=== PATIENT | male | born 1965 | race Caucasian/White ===

== ENCOUNTER 2024-11-13 13:57 | Emergency (ER) | payer MEDICARE, OTHER, SELFPAY ==
[2024-11-13 14:21] VITALS: BP 142/91; PULSE 70; RESP 16; TEMP 36.9; O2SAT 98
--- NOTE | 2024-11-13 14:45 | ED.GENADULT ---
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 No longer on any medications or anticoagulants). He presents to the ER today with his girlfriend for evaluation of right-sided flank pain and right sided back pain. He actually injured his back about a week ago. He was riding a horse. He was leaning to the right to reach something that was hanging down when the strap on his saddle was loose. The saddle began to rotate to the right and then the horse turned to the left causing the patient to fall directly off the horse onto the ground. He had had a right shoulder surgery a few months ago so was not able to reach out his right arm to stop his fall. He landed directly on his right flank/posterior ribcage. He had the wind knocked out of him but was able to get up. He has been managing his pain at home for the past week with oral boam-wpx-olzdyhl medications. He has a lot of pain when he breathes in deeply and pain when he moves wrong but overall has been feeling fine. No dizziness or weakness. No anterior abdominal pain. No hematuria. No pain in his hip or pelvis. No numbness or weakness down his leg. He did not hit his head in the fall and has not had a headache. No neck pain. This morning he sneezed and with that had an abrupt increase in pain that is now severe in the right lower rib cage/flank. Hurts every time he tries to move or breathe deeply. He is not really short of breath but it hurts to take a deep inspiration. No cough. No fever. PFSH PFSH Social History Smoking Status: Never smoker How often do you have a drink containing alcohol: monthly or less AUDIT-C Alcohol total score: 1 Exam Narrative: Exam Narrative: Constitutional: Appears well-developed and well-nourished. Alert. Conversant. Non toxic. HENT: Head: Atraumatic. Nose: Nose normal. Mouth/Throat: Oral mucosa is clear and moist. no trismus. Pharynx normal. Tonsils symmetric. No tonsillar enlargement, erythema, or exudate. Eyes: Conjunctivae normal. EOM normal. Pupils equal, round, and reactive to light. No scleral icterus. Neck: Normal range of motion. Neck supple. No tracheal deviation present. Cardiovascular: Normal rate, regular rhythm. No gallop. No friction rub. No murmur heard. Symmetric radial artery pulses Pulmonary/Chest: Effort normal. No stridor. No respiratory distress. No wheezes. No rales. No rhonchi . Marked right posterior lower rib tenderness. And CVA tenderness. No bruising. No rash. No crepitus. Abdominal: Soft. No distension. No mass. No tenderness. No rebound. No guarding. Musculoskeletal: RUE: Normal range of motion. No tenderness. No deformity LUE: Normal range of motion. No tenderness. No deformity RLE: Normal range of motion. No edema. No tenderness. No deformity LLE: Normal range of motion. No edema. No tenderness. No deformity No midline C, T, L-spine tenderness Pelvis stable. Neurological: Alert and oriented to person, place, and time. Normal strength. CN II-VII intact. No sensory deficit. GCS eye subscore is 4. GCS verbal subscore is 5. GCS motor subscore is 6. Normal coordination Skin: Skin is warm and dry. No rash noted. No pallor. Normal capillary refill. Psychiatric: Normal mood. Normal affect. Const: Vital Signs, click to edit/add: Vital Signs - 24 hr 11/13/24 14:21 11/13/24 16:48 Temperature 98.4 F 99.1 F Pulse Rate [Pulse Oximeter] 70 62 Respiratory Rate 16 18 Blood Pressure [[facility] Upper Arm] 142/91 H 138/102 H Pulse Oximetry 98 93 Oxygen Delivery Me thod Room Air Room Air Course Vital Signs Vital signs: Initial Vital Signs Temperature 98.4 F 11/13/24 14:21 Temperature Source Temporal Artery Scan 11/13/24 14:21 Pulse Rate 70 11/13/24 14:21 Respiratory Rate 16 11/13/24 14:21 Blood Pressure 142/91 H 11/13/24 14:21 Blood Pressure Mean 108 H 11/13/24 14:21 Pulse Oximetry 98 11/13/24 14:21 Oxygen Delivery Method Room Air 11/13/24 14:21 Vital Signs Temperature 98.4 F 11/13/24 14:21 Pulse Rate 70 11/13/24 14:21 Respiratory Rate 16 11/13/24 14:21 Blood Pressure 142/91 H 11/13/24 14:21 Pulse Oximetry 98 11/13/24 14:21 Oxygen Delivery Method Room Air 11/13/24 14:21 Temperature 99.1 F 11/13/24 16:48 Pulse Rate 62 11/13/24 16:48 Respiratory Rate 18 11/13/24 16:48 Blood Pressure 138/102 H 11/13/24 16:48 Pulse Oximetry 93 11/13/24 16:48 Oxygen Delivery Method Room Air 11/13/24 16:48 Medications Administered Medications: Discontinued Medications Generic Name Dose Route Start Last Admin Trade Name Freq PRN Reason Stop Dose Admin Hydromorphone HCl 0.5 mg 11/13/24 14:59 11/13/24 15:31 Hydromorphone 0.5 Mg/0.5 Ml Inj IVP 0.5 mg Q1H PRN Administration Pain Ketorolac Tromethamine 15 mg 11/13/24 14:59 11/13/24 15:32 Ketorolac 15 Mg/Ml Inj IVP 11/13/24 15:00 15 mg ONCE ONE Administration Ondansetron HCl 4 mg 11/13/24 14:59 11/13/24 15:32 Ondansetron 2 Mg/Ml Inj IVP 11/13/24 15:00 4 mg ONCE ONE Administration Medical Decision Making [facility] Narrative Medical decision making narrative: Pleasant 59-year-old gentleman presenting with a one-week history of right flank/lower rib pain after suffering an injury when he fell off his horse. Pain dramatically worsened today when he sneezed. He is hemodynamically stable. Differential here is broad. Consider musculoskeletal pain. With the amount of pain and marked tenderness that he has has him concerned about possible rib fracture. Defer 0 show also include renal injury, hepatic injury, musculoskeletal injury. After discussing options for workup with the patient his girlfriend (x-ray versus CT) we opted to do with CT scan. CT scan of his chest 7 pelvis showed evidence for a right posterior nondisplaced 11th rib fracture. No other acute injury. He did not hit his head or neck. He received IV Dilaudid for his pain here in the ER and was somewhat more comfortable. Pain was tolerable and he was felt safe for discharge home. Instymeds prescriptions for Percocet-12 tablets. Opiate precautions including sedation, constipation, dizziness, driving, and addiction reviewed. Also Zofran for opiate induced nausea Precautions for return to the ER reviewed. Lab Data Labs: Lab Results 11/13/24 11/13/24 Range/Units 14:59 15:30 WBC 8.70 (4.50-11.00) K/uL RBC 5.14 (4.30-5.90) m/uL Hgb 15.6 (13.5-17.5) gm/dL Hct 47.2 (37.0-53.0) % MCV 92 (80-100) fL MCH 30 (26-34) pg MCHC 33 (32-36) gm/dL RDW Coeff of Anuel 13.2 (11.5-15.5) % Plt Count 270 (140-440) K/uL Neut % (Auto) 72.5 H (42.0-72.0) % Lymph % (Auto) 17.2 L (20-44) % [place] % (Auto) 7.1 (0.0-11.0) % Eos % (Auto) 2.4 (0.0-7.0) % Baso % (Auto) 0.7 (0.0-3.0) % Neut # (Auto) 6.30 (1.7-7.0) K/uL Lymph # (Auto) 1.50 (0.90-2.90) K/uL [place] # (Auto) 0.60 (0.00-0.90) K/UL Eos # (Auto) 0.21 (0.00-0.50) K/uL Baso # (Auto) 0.06 (0.00-0.30) K/uL Abs Immat Gran (auto) 0.01 (0.00-0.30) K/uL Imm/Tot Granulo (auto) 0.1 % Sodium 137 (135-149) mmol/L Potassium 4.4 (3.6-5.1) mmol/L Chloride 100 (96-114) mmol/L Carbon Dioxide 27 (20-32) mmol/L Anion Gap 10 (7-15) mEq/L BUN 18 (7-30) mg/dL Creatinine 0.9 (0.5-1.5) mg/dL Estimated GFR 98 ml/min Glucose 96 (60-115) mg/dL Calcium 9.3 (8.4-10.6) mg/dL Total Bilirubin 0.6 (0.1-1.5) mg/dL AST 20 (12-35) U/L ALT 21 (4-50) U/L Alkaline Phosphatase 81 (40-150) U/L Total Protein 7.7 (6.0-8.3) g/dL Albumin 4.7 (3.3-5.0) g/dL Imaging Data CT Chest/Ab/Pelvis: Attestation: I have reviewed the pertinent imaging results. My impression: By my read I do think there is a nondisplaced fracture of the posterior right 11th rib. No associated hemothorax or pneumothorax. I called [facility], Radiology, to ask for an over read. This will be forthcoming. Radiologist's impression: IMPRESSION: No traumatic injury identified in the chest, abdomen or pelvis. Discharge Plan Discharge Clinical Impression: Fracture of rib Patient Disposition: Home, Self-Care Condition: Stable Instructions: Rib Fracture (ED) Additional Instructions: As we discussed, your CT scan shows evidence for a rib fracture on your right 11th rib. This fracture will heal with time. Due to best control the pain. Start with over the counter pain medications or ice packs or warm packs. Use the prescription pain killer (Percocet) if needed. Be careful with Percocet because it causes dizziness, drowsiness, constipation and can be addictive. Do not drive for 6 hours after taking Percocet. Be sure to take deep breaths 3-4 times per day to fully inflate your long and help prevent pneumonia If you have any worsening symptoms such as worsening pain, trouble breathing, high fever, cough, dizziness or weakness, please return to emergency room right away Follow Up/Referrals: Thuan Garza MD [Primary Care Provider] - Stand Alone Forms: MyHealth Info Instructions
[2024-11-13] MEDS: HYDROmorphone 0.5 mg/0.5 ml inj IVP (15:31)
[2024-11-13] MEDS: ONDANSETRON 2 MG/ML inj 4 MG IVP (15:32)
[2024-11-13] MEDS: KETOROLAC 15 MG/ML inj IVP (15:32)
[2024-11-13 15:35] LABS: Basophils Absolute Auto 0.06 K/uL (0.00-0.30); Basophils Percent Auto 0.7 % (0.0-3.0); Eosinophils Absolute Auto 0.21 K/uL (0.00-0.50); Eosinophils Percent Auto 2.4 % (0.0-7.0); Hematocrit 47.2 % (37.0-53.0); Hemoglobin* 15.6 gm/dL (13.5-17.5); Immature Granulocytes Abs Auto 0.01 K/uL (0.00-0.30); Immature Granulocytes Pct Auto 0.1 %; Lymphocytes Percent Auto 17.2 % (20-44); Mean Corpuscular HGB Conc 33 gm/dL (32-36); Mean Corpuscular Hemoglobin 30 pg (26-34); Mean Corpuscular Volume 92 fL (80-100); Monocytes Percent Auto 7.1 % (0.0-11.0); Neutrophils Percent Auto 72.5 % (42.0-72.0); Platelet Count* 270 K/uL (140-440); RDW Coefficient of Variation % 13.2 % (11.5-15.5); Red Blood Count 5.14 m/uL (4.30-5.90)
[2024-11-13 15:39] LABS: Slide Review Reflex No
[2024-11-13 15:47] LABS: Albumin* 4.7 g/dL (3.3-5.0); Chloride* 100 mmol/L (96-114); Potassium* 4.4 mmol/L (3.6-5.1); Sodium* 137 mmol/L (135-149)
[2024-11-13 15:49] LABS: Blood Urea Nitrogen* 18 mg/dL (7-30); Creatinine* 0.9 mg/dL (0.5-1.5); Estimated Glomerular Filt Rate 98 ml/min
[2024-11-13 15:50] LABS: Alanine Aminotransferase* 21 U/L (4-50); Alkaline Phosphatase* 81 U/L (40-150); Anion Gap 10 mEq/L (7-15); Aspartate Amino Transferase* 20 U/L (12-35); Bilirubin Total* 0.6 mg/dL (0.1-1.5); Carbon Dioxide* 27 mmol/L (20-32); Glucose* 96 mg/dL (60-115); Total Protein* 7.7 g/dL (6.0-8.3)
[2024-11-13 15:51] LABS: Calcium* 9.3 mg/dL (8.4-10.6)
--- OUTSIDE RECORDS SUMMARY | 2024-11-13 16:10 | XMS_ITS | Clinical Summary ---
Author Organization [employer] [facility] [employer] [facility] Address [address] [place] [address] Care Team Providers Care Subsurface Augmentee Elint Operator Name Role Phone Pcp, No Primary Care Provider Unavailabl e Allergies Active Allergy Reactions Criticality Noted Date Comments Chondroitin Sulfate A Sodium *Unknown 010 Hyaluronate Sodium *Unknown 07/13/2010 Medications rivaroxaban (Xarelto) 20 mg tablet 2 Active atorvastatin (LIPITOR) 40 mg tablet 40 mg. 2 Active zaleplon (SONATA) 10 mg capsule Take 1 Capsule by mouth at bedtime if needed. 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 EXAMINER Gender Identity Not on file Sexual Orientation Not on file Obstetrics History Last Filed Vital Signs Vital Sign Reading Time Taken Comments Blood Pressure 129/81 10/04/2022 1:57 PM YARN EXAMINER Pulse 60 10/04/2022 1:57 PM YARN EXAMINER Temperature 37 C (98.6 F) 10/04/2022 1:57 PM YARN EXAMINER Respiratory Rate 18 10/04/2022 1:57 PM YARN EXAMINER Oxygen Saturation 97% 10/04/2022 1:57 PM YARN EXAMINER Inhaled Oxygen Concentration - - Weight - - Height - - Body Mass Index - - Plan of Treatment Health Maintenance Due Date Last Done Comments Tdap 1976 Depression screening for age 12+ 1977 HIV for age 15-65 1980 BMI (ht and wt on same day) for age 18+ 1983 Hepatitis C screening for age 18-79 1983 Tetanus booster 1985 Colonoscopy through age 75 2010 Lipids for age 45-75 2010 Pneumococcal series for age 50+ (1 of 1 - PCV) 016 Zoster (shingles) series for age 50+ (1 of 2) 11/04/19 16 COVID-19 vaccine series ( - 2023- season) 4 Influenza for age 50-64 05/13/2024 Insurance MEDICARE PB ONLY [employer] MEDICARE PB ONLY [facility] [employer] [facility] TPL UNDETERMINED [address] [place] [address] MEDICARE PB ONLY Care Teams Subsurface Augmentee Elint Operator Relationship Specialty Start Date End Date Pcp, No . PCP - General 10/04/22
--- OUTSIDE RECORDS SUMMARY | 2024-11-13 16:10 | XMS_ITS | Encounter Summary ---
Author Organization [facility] Address [address] [place] [address] Care Team Providers Care Car Packer Name Role Phone Isaias Marrero Primary Care Provider [phone] Katie Uribe MD Unavailable Chucky Romano MD Unavailable [phone] Radu Kwon MD Unavailable + [phone] Nichelle Dimas DO Unavailable [phone] Encounter Details Date Type Department Care Team (Late st Contact Info) Description 03/29/2017 Records - [facility] HE CONVERSION Scan, Non-Provider Social History Tobacco Use Types Packs/Day Years Used Date Smoking Tobacco: Never Smokeless Tobacco: Never Alcohol Use Standard Drinks/Week Comments No 0 (1 standard drink = 0.6 oz pur e alcohol) Sex and Gender Information Value Date Recorded Sex Assigned at Not on file 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 Gender Identity Not on file Sexual Orientation Not on file documented as of this encounter Plan of Treatment Not on file documented as of this encounter Visit Diagnoses Not on filedocumented in this encounter Care Teams Car Packer Relationship Specialty Start Date End Date Isaias Marrero [facility] [address] [place] [address] PCP - General Internal Medicine 03/11/16 Katie Uribe MD [address] [place] [address] Assigned PCP 03/27/21 12/26/21 Chucky Romano MD [address] [facility] [id number] [place] [address] Assigned Surgical Provider 01/03/22 Radu Kwon MD [address] [place], [place] [id number] Assigned PCP 12/27/21 07/15/23 Nichelle Dimas DO [address] [place] [address] Assigned PCP 07/16/23 documented as of this encounter
--- OUTSIDE RECORDS SUMMARY | 2024-11-13 16:10 | XMS_ITS | Encounter Summary ---
Author Organization [facility] Address [address] [place] [address] Care Team Providers Care Truck Hop Name Role Phone Isaias Marrero Primary Care Provider [phone] Chucky Romano MD Unavailable [phone] Radu Kwon MD Unavailable + [phone] Nichelle Dimas DO Unavailable [phone] Encounter Details Date Type Department Care Team (Late st Contact Info) Description 05/05/2022 [facility] [place] [facility] [address]rd [place] [address] Chucky Romano MD [address] [place] [address] [id number] [place], [place] [id number] Social History Tobacco Use Types Packs/Day Years Used Date Smoking Tobacco: Never Smokeless Tobacco: Never Alcohol Use Standard Drinks/Week Comments Yes 0 (1 standard drink = 0.6 oz pur e alcohol) occasional PHQ-2 Answer Date Recorded PHQ-2 Score 6 03/30/2022 Sex and Gender Information Value Date Recorded Sex Assigned at Not on file 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 Unable to assess 04/06/2022 11:02 AM CDT documented as of this encounter Plan of Treatment Not on file documented as of this encounter Visit Diagnoses Not on filedocumented in this encounter Additional Health Concerns Assessment Noted Time PHQ-9 Depression Total Score: 18 022 7:51 AM CDT documented as of this encounter Care Teams Truck Hop Relationship Specialty Start Date End Date Isaias Marrero [facility] [place] [place] [address] PCP - General Internal Medicine 03/11/16 Chucky Romano MD [address] [facility] [id number] [place] [address] Assigned Surgical Provider 01/03/22 Radu Kwon MD [address] [place] [address] Assigned PCP 12/27/21 07/15/23 Nichelle Dimas DO [address] [place] [address] Assigned PCP 07/16/23 documented as of this encounter
--- OUTSIDE RECORDS SUMMARY | 2024-11-13 16:10 | XMS_ITS | Encounter Summary ---
Author Organization [facility] Address [address] [place] [address] Care Team Providers Care Banbury Operator Name Role Phone System, Provider Not In Primary Care Provider Un available Isaias Marrero Primary Care Provider [phone] Katie Uribe MD Unavailable Chucky Romano MD Unavailable [phone] Radu Kwon MD Unavailable + [phone] Nichelle Dimas DO Unavailable [phone] Encounter Details Date Type Department Care Team (Late st Contact Info) Description 09/10/2014 Records - [facility]INE/OB [address] [place] [address] [place] [address] [place] [address] Social History Tobacco Use Types Packs/Day Years Used Date Smoking Tobacco: Never Smokeless Tobacco: Never Alcohol Use Standard Drinks/Week Comments No 0 (1 standard drink = 0.6 oz pur e alcohol) Sex and Gender Information Value Date Recorded Sex Assigned at Not on file 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 [place] [place] [address] PCP - General Internal Medicine 03/11/16 Katie Uribe MD [address] [facility] [address] [place] [address] Assigned PCP 03/27/21 12/26/21 Chucky Romano MD [address] [facility] [id number] [place] [address] Assigned Surgical Provider 01/03/22 Radu Kwon MD [address] [place] [address] Assigned PCP 12/27/21 07/15/23 Nichelle Dimas DO [address] [place] [address] Assigned PCP 07/16/23 documented as of this encounter
--- OUTSIDE RECORDS SUMMARY | 2024-11-13 16:10 | XMS_ITS | Encounter Summary ---
Author Organization [facility] Address [address] [place] [address] Care Team Providers Care Director Of People Name Role Phone System, Provider Not In Primary Care Provider Un available Isaias Marrero Primary Care Provider [phone] Katie Uribe MD Unavailable Chucky Romano MD Unavailable [phone] Radu Kwon MD Unavailable + [phone] Nichelel Dimas DO Unavailable [phone] Encounter Details Date Type Department Care Team (Late st Contact Info) Description 11/22/2014 Records - [facility] HE CONVERSION Scan, Non-Provider Social History Tobacco Use Types Packs/Day Years Used Date Smoking Tobacco: Never Smokeless Tobacco: Never Alcohol Use Standard Drinks/Week Comments No 0 (1 standard drink = 0.6 oz pur e alcohol) Sex and Gender Information Value Date Recorded Sex Assigned at Not on file Legal Sex Male 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 Gender Identity Not on file Sexual Orientation Not on file documented as of this encounter Plan of Treatment Not on file documented as of this encounter Visit Diagnoses Not on filedocumented in this encounter Care Teams Director Of People Relationship Specialty Start Date End Date System, Provider Not In PCP - General 10/19/08 03/10/16 Isaias Marrreo [facility] [place] [address] PCP - General Internal Medicine 03/11/16 Katie Uribe MD [address] [place] [address] Assigned PCP 03/27/21 12/26/21 Chucky Romano MD [address] [facility] [id number] [place] [address] Assigned Surgical Provider 01/03/22 Radu Kwon MD [address] [place] [address] Assigned PCP 12/27/21 07/15/23 Nichelle Dimas DO [address] [place] [address] Assigned PCP 07/16/23 documented as of this encounter
--- OUTSIDE RECORDS SUMMARY | 2024-11-13 16:10 | XMS_ITS | Encounter Summary ---
Author Organization [facility] Address [address] [place] [address] Care Team Providers Care Aquatic Ecologist Name Role Phone Isaias Marrero Primary Care Provider [phone] Chucky Romano MD Unavailable [phone] Radu Kwon MD Unavailable + [phone] Nichelle Dimas DO Unavailable [phone] Encounter Details Date Type Department Care Team (Late st Contact Info) Description 12/22/2022 [facility] [place] [facility] [facility] [address] [place] [address] Chucky Romano MD [address] [place] [address] [id number] [place], [place] [address]125 Social History Tobacco Use Types Packs/Day Years Used Date Smoking Tobacco: Never Smokeless Tobacco: Never Alcohol Use Standard Drinks/Week Comments Yes 0 (1 standard drink = 0.6 oz pur e alcohol) occasional PHQ-2 Answer Date Recorded PHQ-2 Score 6 03/30/2022 Sex and Gender Information Value Date Recorded Sex Assigned at Not on file 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 Gender Identity Not on file Sexual Orientation Not on file documented as of this encounter Plan of Treatment Not on file documented as of this encounter Visit Diagnoses Not on filedocumented in this encounter Additional Health Concerns Assessment Noted Time PHQ-9 Depression Total Score: 18 022 7:51 AM CDT documented as of this encounter Care Teams Aquatic Ecologist Relationship Specialty Start Date End Date IvannarayneIsaias [facility] [address] [facility] [place] [address] PCP - General Internal Medicine 03/11/16 Chucky Romano MD [address] [facility] [id number] [place] [address] Assigned Surgical Provider 01/03/22 Radu Kwon MD [address] [place] [address] Assigned PCP 12/27/21 07/15/23 Nichelle Dimas DO [address] [place] [address] Assigned PCP 07/16/23 documented as of this encounter
--- OUTSIDE RECORDS SUMMARY | 2024-11-13 16:10 | XMS_ITS | Encounter Summary ---
Author Organization [facility] Address [address] [place] [address] Care Team Providers Care Vessel Master Name Role Phone Isaias Marrero Primary Care Provider [phone] Chucky Romano MD Unavailable [phone] Radu Kwon MD Unavailable + [phone] Nichelle Dimas DO Unavailable [phone] Encounter Details Date Type Department Care Team (Late st Contact Info) Description 10/29/2022 [facility] [facility] [address] [place] [address] Chucky Romano MD [address] [place] [address] [id number] [place], [place] [address] Social History Tobacco Use Types Packs/Day Years Used Date Smoking Tobacco: Never Smokeless Tobacco: Never Alcohol Use Standard Drinks/Week Comments Yes 0 (1 standard drink = 0.6 oz pur e alcohol) occasional PHQ-2 Answer Date Recorded PHQ-2 Score 6 03/30/2022 Sex and Gender Information Value Date Recorded Sex Assigned at Not on file Legal Sex Male 4:03 AM DB2 DBA Gender Identity Not on file Sexual Orientation Not on file COVID-19 Exposure Response Date Recorded In the last 10 days, have yo u been in contact with someone who was confirmed or suspected to have Coronavirus/COVID-19? No / Unsure 10/05/2022 6:39 PM DB2 DBA documented as of this encounter Plan of Treatment Not on file documented as of this encounter Visit Diagnoses Not on filedocumented in this encounter Additional Health Concerns Assessment Noted Time PHQ-9 Depression Total Score: 18 022 7:51 AM CDT documented as of this encounter Care Teams Vessel Master Relationship Specialty Start Date End Date Isaias Marrero [facility] [place] [address] PCP - General Internal Medicine 03/11/16 Chucky Romano MD [address] [facility] [id number] [place] [address] Assigned Surgical Provider 01/03/22 Radu Kwon MD [address] [place] [address] Assigned PCP 12/27/21 07/15/23 Nichelle Dimas DO [address] [place] [address] Assigned PCP 07/16/23 documented as of this encounter
--- OUTSIDE RECORDS SUMMARY | 2024-11-13 16:10 | XMS_ITS | Encounter Summary ---
Author Organization [facility] Address [address] [place] [address] Care Team Providers Care Boiler Operators Supervisor Name Role Phone Isaias Marrero Primary Care Provider [phone] Chucky Romano MD Unavailable [phone] Radu Kwon MD Unavailable + [phone] Nichelle Dimas DO Unavailable [phone] Encounter Details Date Type Department Care Team (Late st Contact Info) Description 01/24/2022 [facility] [place] [facility] [address] [place] [address] Chucky Romano MD [address] [place] [address] [id number] [place], [place] [address] Social History Tobacco Use Types Packs/Day Years Used Date Smoking Tobacco: Never Smokeless Tobacco: Never Alcohol Use Standard Drinks/Week Comments Yes 0 (1 standard drink = 0.6 oz pur e alcohol) occasional PHQ-2 Answer Date Recorded PHQ-2 Score 4 12/29/2021 Sex and Gender Information Value Date Recorded Sex Assigned at Not on file 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 No / Unsure 12/29/2021 8:30 AM CDT documented as of this encounter Miscellaneous Notes * Telephone Encounter - Elvrum, Jeanne, RN - 01/28/2022 11:[address] Romano letter drafted and sent via [employer]. Jeanne España RN 01/28/2022 11:32 AM * Telephone Encounter - Jeanne España RN - 01/26/2022 8:10 AM CDT Routed to Dr. Romano. Jeanne España RN 01/26/2022 8:11 AM documented in this encounter Plan of Treatment Not on file documented as of this encounter Visit Diagnoses Not on filedocumented in this encounter Additional Health Concerns Assessment Noted Time PHQ-9 Depression Total Score: 10 022 11:35 AM CDT documented as of this encounter Care Teams Boiler Operators Supervisor Relationship Specialty Start Date End Date Isaias Marrero [facility] [address] [facility] [place] [address] PCP - General Internal Medicine 03/11/16 Chucky Romano MD [address] [facility] [id number] [place] [address] Assigned Surgical Provider 01/03/22 Radu Kwon MD [address] [place] [address] Assigned PCP 12/27/21 07/15/23 Nichelle Dimas DO [address] [place] [address] Assigned PCP 07/16/23 documented as of this encounter
--- OUTSIDE RECORDS SUMMARY | 2024-11-13 16:10 | XMS_ITS | Clinical Summary ---
Author Organization [facility] Address [address] [place] [address] Care Team Providers Care Tip Banding Machine Operator Name Role Phone Elida Isaias Primary Care Provider [phone] Chucky Romano MD Unavailable + [phone] Nichelle Dimas DO Unavailable [phone] Allergies Active Allergy Reactions Criticality Noted Date Comments Namlan G-F 20 Swelling 04/04/2012 Knees swelled up Medications SILDENAFIL CITRATE PO Take 100 mg by mouth as needed Active HYDROcodone-florina taminophen (NORCO) 5-325 MG tablet Take 1-2 tablets by mouth 2 times daily as needed for pain 12/08/2021 Active lithium (ESKALITH CR/LITHOBID) 450 MG CR tablet Take 1 tablet by mouth 2 times daily 07/25/2021 Active Multiple Vitamin (MULTIVITAMIN ADULT) TABS Take 1 tablet by mouth At Bedtime Active propranolol (INDERAL) 20 MG tablet Take 20-80 mg by mouth daily as needed (anxiety, irritability ) Active DULoxetine (CYMBALTA) 60 MG capsule Take 60 mg by mouth daily Active prazosin (MINIPRESS) 2 MG capsule Take 2-4 mg by mouth nightly as needed (nightmares, nightsweats) Active aspirin (ASA) 81 MG chewable tabletIndicatio ns:Carotid dissection, bilateral Take 1 tablet (81 mg) by mouth daily 90 tablet 1 03/30/2022 Active atorvastatin (LIPITOR) 40 MG tablet Take 40 mg by mouth daily Active Active Problems Problem Noted Date Diagnosed Date Chronic pain syndrome 07/07/2023 Overview (07/07/2023): Back, neck, knees, on PRN [place] Moderate episode of recurrent major depressive d isorder 07/07/2023 PTSD (post-traumatic stress disorder) 07/07/2023 History of pulmonary embolism 07/07/2023 Overview (07/07/2023): 2014, provoked bilateral knee surgery Erectile dysfunction, unspecified erectile dysfu nction type 07/07/2023 Carotid artery dissection 12/10/2021 Overview (07/07/2023): 2021, left frontal stroke, idiopathic, saw [facility]G [facility] CARDIOVASCULAR SCREENING; LDL GOAL LESS THAN 160 07/31/2013 Encounters Date Type Department Care Team Description 09/18/2024 9:30 AM DIRECTOR PRIVATE Virtual Visit [facility] [address] 3rd [place] [id number] Chucky Romano MD Carotid artery dissection 09/11/2024 9:45 AM DIRECTOR PRIVATE - 09/11/2024 11:59 PM DIRECTOR PRIVATE Hospital Encounter [facility] [address] [place] [phone] Chucky Romano MD Carotid artery dissection Discharge Disposition: Home or Self Care 09/11/2024 Travel 09/07/2024 Travel from Last 3 Months Immunizations Name Administration Dates Next Due Anthrax 07/23/2009,11/25/2008,10/23/2008 DTAP (<7y) 09/12/2002 Flu, Unspecified 06/21/2014, 3,08/30/2012,05/24,07/08/2010 Hepatitis B, Adult 12/02/2003 Influenza (IIV3) PF 07/01/2019 Influenza (prior to 2023) 07/15/2018,07/05/2016 Influenza Vaccine, 6+MO IM (QUADRIVALENT W/PRESERVATIVES) 07/03/2019 MMR 03/01/1989 Measles 07/03/1979 Meningococcal (Menomune ) 04/01/2003,02/21/1989 TDAP (Adacel,Boostrix) 01/19/2008 TDAP Vaccine (Adacel) 07/03/2019 Twinrix A/B 04/25/2005,05/08/2003,03/26/2003 Family History Medical History Relation Comments Diabetes Father Heart Disease Father pacemaker Hyperlipidemia Father Obesity Father Breast Cancer Mother Hypertension Mother Melanoma Mother Relation Status Comments Brother Alive Father Maternal Grandfather Maternal Grandmother Mother Paternal Grandfather Paternal Grandmother Social History Tobacco Use Types Packs/Day Years Used Date Smoking Tobacco: Never Smokeless Tobacco: Never Alcohol Use Standard Drinks/Week Comments Yes 0 (1 standard drink = 0.6 oz pur e alcohol) 1-2 drinks every 1-2 weeks PHQ-2 Answer Date Recorded PHQ-2 Score 0 09/18/2024 Adolescent Education Answer Date Record ed Getting School Help Needed Not on file 06/27 Food Insecurity Answer Date Recorded Within the past 12 months, d id you worry that your food would run out before you got money to buy more? No 07/07/2023 Within the past 12 months, d id the food you bought just not last and you didn t have money to get more? No 07/07/2023 Housing Stability Answer Date Recorded Do you have housing? (Vannessain g is defined as stable permanent housing and does not include staying ouside in a car, in a tent, in an abandoned building, in an overnight detention, or couch-surfing.) Yes 07/07/2023 Are you worried about losing your housing? No 07/07/2023 Financial Resource Strain Answer Date R ecorded Within the past 12 months, h ave you or your family members you live with been unable to get utilities (heat, electricity) when it was really needed? No 07/07/2023 Transportation Needs Answer Date Record ed Within the past 12 months, h as lack of transportation kept you from medical appointments, getting your medicines, non-medical meetings or appointments, work, or from getting things that you need? No 07/07/2023 Interpersonal Safety Answer Date Record ed Do you feel physically and e motionally safe where you currently live? Yes 07/07/2023 Within the past 12 months, h ave you been hit, slapped, kicked or otherwise physically hurt by someone? No 07/07/2023 Within the past 12 months, h ave you been humiliated or emotionally abused in other ways by your partner or ex-partner? No 07/07/2023 Sex and Gender Information Value Date Recorded Sex Assigned at Not on file Legal Sex Male 4:03 AM DIRECTOR PRIVATE Gender Identity Not on file Sexual Orientation Not on file Last Filed Vital Signs Vital Sign Reading Time Taken Comments Blood Pressure 122/78 07/07/2023 10:24 AM CDT Pulse 54 07/07/2023 10:24 AM CDT Temperature 36.4 C (97.5 F) 07/07/2023 10:24 AM CDT Respiratory Rate 16 02/22/2023 2:10 PM CDT Oxygen Saturation 100% 07/07/2023 10:24 AM CDT Inhaled Oxygen Concentration - - Weight 88.9 kg (196 lb) 10/11/2023 10:27 AM DIRECTOR PRIVATE Height 179 cm (5' 10.47) 10/11/2023 10:27 AM CS T Body Mass Index 27.75 10/11/2023 10:27 AM DIRECTOR PRIVATE Plan of Treatment Health Maintenance Due Date Last Done Comments CT COLONOGRAPHY 1965 DEPRESSION ACTION PLAN 1965 FLEX SIG 1965 sDNA (Cologuard) 1965 COLONOSCOPY 1975 HIV SCREENING 1980 HEPATITIS C SCREENING 1983 MEDICARE ANNUAL WELLNESS VISIT 07/25/2014 07/25/2013 Pneumococcal Vaccine: 50+ Years (1 of 1 - PCV) 2015 ZOSTER IMMUNIZATION (1 of 2) 2015 LIPID 12/11/2022 12/11/2021 ANNUAL REVIEW OF HM ORDERS 12/21/2022 12/21/2021 COLORECTAL CANCER SCREENING 12/22/2022 FIT 12/22/2022 12/22/2021, 12/22/2021 PHQ-9 04/10/2024 10/11/2023, 10/2 02/2023, 03/30/2022, Additional history exists COVID-19 Vaccine ( - season) 2024 INFLUENZA VACCINE (#1) 2024 9, 07/01/2019, 07/15/2018, Additional history exists GLUCOSE 12/11/2024 12/11/2021, 04/0 09/2021, 12/11/2021, Additional history exists ADVANCE CARE PLANNING 07/07/2028 07/07/2023 DTAP/TDAP/TD IMMUNIZATION (4 - Td or Tdap) 07/03/2029 07/03/2019, 01/19/2008, 01/19/2008, Additional history exists MENINGITIS IMMUNIZATION Aged Out 04/01/2003, 02/21 No longer eligible based on patient's age to complete this topic HEPATITIS B IMMUNIZATION Completed 005, 12/02/2003, 05/08/2003, Additional history exists HPV IMMUNIZATION Aged Out No longer e ligible based on patient's age to complete this topic Procedures Procedure Name Priority Date/Time Associated Diagnosis Comments CTA HEAD NECK W CONTRAST Routine 09/11/2024 10:21 AM DIRECTOR PRIVATE Carotid artery dissection FECAL COLORECTAL CANCER SCREEN FIT Routine 12/22/2021 9:00 AM CDT Screening for malignant neoplasm of colon GLUCOSE BY METER Routine 12/11/2021 4:44 PM CDT LIPID PROFILE Routine 12/11/2021 6:10 AM CDT from Last 3 Months or Most Recently Relevant to Health Maintenance Results * CTA Head Neck w Contrast (09/11/2024 10:21 AM DIRECTOR PRIVATE) Anatomical Region Laterality Modality Head, SUBRAD CT NEURO, SUBRA D CT NEURO, UMP CT NEURO, RAD CT Computed Tomography Impressions 09/11/2024 10:48 AM DIRECTOR PRIVATE IMPRESSION: Stable findings compared to 09/27/2023 with 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 Stable focal dilatation in the the distal right cervical ICA. HARLEEN FRANCO MD SYSTEM ID: [id number] Narrative 09/11/2024 10:48 AM DIRECTOR PRIVATE EXAM: CTA HEAD NECK W CONTRAST 09/11/2024 10:21 AM HISTORY: Carotid artery dissection (H). COMPARISON: CTA 09/27/2023 TECHNIQUE: During rapid bolus intravenous injection of nonionic contrast material, axial images were obtained using thin collimation multidetector helical technique from the base of the upper aortic arch through the [place] of [place]. This CT angiogram data was reconstructed at thin intervals with mild overlap. Images were sent to the 3D workstation, and 3D reconstructions were obtained. The axial source images, multiplanar reformations, 3D reconstructions in both maximum intensity projection display and volume rendered models were reviewed, with reconstructions performed by the technologist and the radiologist. CONTRAST: 67 mL [id number] FINDINGS: Head CTA demonstrates patent major intracranial arteries without large vessel occlusion, high grade stenosis or aneurysm. Neck CTA demonstrates unchanged focal dilatation within the distal right cervical ICA measuring up to 6.8 mm. Unchanged chronic dissection within the distal left cervical ICA. Chronic dissection within the cranial portion of the V2 segment of the left vertebral artery. Unchanged focal dilatation within the V2 segment of the left vertebral artery at C6 level measuring up to 6.7 mm. Small right vertebral artery. Tortuosity of the right ICA. No acute finding in the visualized neck soft tissues, or in the superior mediastinum/thorax. Procedure Note Harleen Franco MD - 09/11/2024 EXAM: CTA HEAD NECK W CONTRAST 09/11/2024 10:21 AM HISTORY: Carotid artery dissection (H). COMPARISON: CTA 09/27/2023 TECHNIQUE: During rapid bolus intravenous injection of nonionic contrast material, axial images were obtained using thin collimation multidetector helical technique from the base of the upper aortic arch through the [place] of [place]. This CT angiogram data was reconstructed at thin intervals with mild overlap. Images were sent to the 3D workstation, and 3D reconstructions were obtained. The axial source images, multiplanar reformations, 3D reconstructions in both maximum intensity projection display and volume rendered models were reviewed, with reconstructions performed by the technologist and the radiologist. CONTRAST: 67 mL [id number] FINDINGS: Head CTA demonstrates patent major intracranial arteries without large vessel occlusion, high grade stenosis or aneurysm. Neck CTA demonstrates unchanged focal dilatation within the distal right cervical ICA measuring up to 6.8 mm. Unchanged chronic dissection within the distal left cervical ICA. Chronic dissection within the cranial portion of the V2 segment of the left vertebral artery. Unchanged focal dilatation within the V2 segment of the left vertebral artery at C6 level measuring up to 6.7 mm. Small right vertebral artery. Tortuosity of the right ICA. No acute finding in the visualized neck soft tissues, or in the superior mediastinum/thorax. 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 Stable focal dilatation in the the distal right cervical ICA. HARLEEN FRANCO MD SYSTEM ID: [id number] Chucky Romano MD IMG CT ORDERABLES F inal Result * Fecal colorectal cancer screen (FIT) (12/22/2021 9:00 AM CDT) Occult Blood Screen FIT Negative Negative 12/26/2021 8:00 PM CDT LABORATORY Stool RECTAL CONTENTS / Unknown Non-blood Collection / Unknown 12/22/2021 9:00 AM CDT 12/26/2021 6:59 PM CDT Radu Kwon MD LAB - STOOLS ORDERAB LES Final Result U LABORATORY [facility] [address] [facility], [address] [place] [address], [place] [phone] * Glucose by meter (12/11/2021 4:44 PM CDT) [facility] Signature GLUCOSE BY METER POCT 86 70 - 99 mg/dL 12/11/2021 4:51 PM CDT LABORATORY POC Blood, Capillary BLOOD SPECIMEN / Unknown 12/11/2021 4:44 PM CDT 12/11/2021 4:51 PM CDT us Ella Benites MD LAB - BEAKER POCT Final Result LABORATORY POC [facility] [address], [address] [place] [address], [place] [phone] * (ABNORMAL) Lipid panel reflex to direct LDL: Non-fasting (12/11/2021 6:10 AM CDT) Cholesterol 187 <200 mg/dL 12/11/2021 6:52 AM CDT LABORATORY Triglycerides 206(H) <150 mg/dL 12/11/2021 6:52 AM CDT LABORATORY Direct Measure HDL 49 >=40 mg/dL 12/11/2021 6:52 AM CDT LABORATORY LDL Cholesterol Calculated 97 <=100 mg/dL 12/11/2021 6:52 AM CDT LABORATORY Non HDL Cholesterol 138(H) <130 mg/dL 12/11/2021 6:52 AM CDT LABORATORY Blood STRUCTURE OF LEFT UPPER LIMB / Unknown Venipuncture / Unknown 12/11/2021 6:10 AM CDT 12/11/2021 6:26 AM CDT Narrative SH LABORATORY - 12/11/2021 6:52 AM CDT Cholesterol Desirable: <200 mg/dL Triglycerides Normal: Less than 150 mg/dL Borderline High: 150-199 mg/dL High: 200-499 mg/dL Very High: Greater than or equal to 500 mg/dL Direct Measure HDL Female: Greater than or equal to 50 mg/dL Male: Greater than or equal to 40 mg/dL LDL Cholesterol Desirable: <100mg/dL Above Desirable: 100-129 mg/dL Borderline High: 130-159 mg/dL High: 160-189 mg/dL Very High: >= 190 mg/dL Non HDL Cholesterol Desirable: 130 mg/dL Above Desirable: 130-159 mg/dL Borderline High: 160-189 mg/dL High: 190-219 mg/dL Very High: Greater than or equal to 220 mg/dL us Jorgito Cotto PA-C LAB - BLOOD ORDERAB LES Final Result LABORATORY [facility] [address], [address] [id number] [address], [place] [phone] from Last 3 Months or Most Recently Relevant to Health Maintenance Insurance MEDICARE / MEDICARE / Advance Directives For more information, please contact: [phone] * Full Code (Latest Code Status on File) Date Activated Date Inactivated Comments 12/10/2021 8:29 PM 12/12/2021 4:01 PM All basic and advanced life-sustaining interventions are performed as appropriate Question Answer Comments Code status determined by: Discussion with dafnee nt/ legal decision maker Care Teams Tip Banding Machine Operator Relationship Specialty Start Date End Date Isaias Marrero [facility] [place] [address] PCP - General Internal Medicine 03/11/16 Chucky Romano MD [address] [id number], [place] [address] Assigned Surgical Provider 01/03/22 Nichelle Dimas DO [facility] [place] [address] Assigned PCP 07/16/23
--- OUTSIDE RECORDS SUMMARY | 2024-11-13 16:10 | XMS_ITS | Encounter Summary ---
Author Organization [facility] Address [address] [place] [address] Care Team Providers Care Ui Developer Designer Name Role Phone ElidaIsaias Primary Care Provider [phone] Chucyk Romano MD Unavailable [phone] Nichelle Dimas DO Unavailable [phone] Encounter Details Date Type Department Care Team (Late st Contact Info) Description 10/24/[address] [facility] Neurosurgery Clinic [address]rd [place] [address] [facility] Social History Tobacco Use Types Packs/Day Years Used Date Smoking Tobacco: Never Smokeless Tobacco: Never Alcohol Use Standard Drinks/Week Comments Yes 0 (1 standard drink = 0.6 oz pur e alcohol) 1-2 drinks every 1-2 weeks PHQ-2 Answer Date Recorded PHQ-2 Score 4 10/11/2023 Adolescent Education Answer Date Record ed Getting [...] Answer Date Recorded Do you have housing? 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 [place] [address] PCP - General Internal Medicine 03/11/16 Chucky Romano MD [address] [facility] [id number] [place] [address] Assigned Surgical Provider 01/03/22 Nichelle Dimas DO [address] [place] [address] Assigned PCP 07/16/23 documented as of this encounter
--- OUTSIDE RECORDS SUMMARY | 2024-11-13 16:10 | XMS_ITS | Encounter Summary ---
Author Organization [facility] Address [address] [place] [address] Care Team Providers Care Barge Engineer Name Role Phone Isaias Marrero Primary Care Provider [phone] Chucky Romano MD Unavailable [phone] Radu Kwon MD Unavailable + [phone] Nichelle Dimas DO Unavailable [phone] Encounter Details Date Type Department Care Team (Late st Contact Info) Description 04/06/2022 [facility] [place] [place] Medical Advice [facility] Neurosurgery Clinic [address] [place] [address] Chucky Romano MD [address] [place] [address] [id number] [place], [place] [address] Social History Tobacco Use Types Packs/Day Years Used Date Smoking Tobacco: Never Smokeless Tobacco: Never Alcohol Use Standard Drinks/Week Comments Yes 0 (1 standard drink = 0.6 oz pur e alcohol) occasional PHQ-2 Answer Date Recorded PHQ-2 Score 6 03/30/2022 Sex and Gender Information Value Date Recorded Sex Assigned at Not on file Legal Sex Male 4:03 AM SLITTING AND SHIPPING SUPERVISOR Gender Identity Not on file Sexual [...] documented as of this encounter Care Teams Barge Engineer Relationship Specialty Start Date End Date Isaias Marrero [facility] [place] [address] PCP - General Internal Medicine 03/11/16 Chucky Romaon MD [address] [facility] [id number] [place] [address] Assigned Surgical Provider 01/03/22 Radu Kwon MD [address] [place] [address] Assigned PCP 12/27/21 07/15/23 Nichelle Dimas DO [address] [place] [address] Assigned PCP 07/16/23 documented as of this encounter
--- OUTSIDE RECORDS SUMMARY | 2024-11-13 16:10 | XMS_ITS | Encounter Summary ---
Author Organization [facility] Address [address] [place] [address] Care Team Providers Care Butcherette Name Role Phone System, Provider Not In Primary Care Provider Un available Isaias Marrero Primary Care Provider [phone] Katie Uribe MD Unavailable Chucky Romano MD Unavailable [phone] Radu Kwon MD Unavailable + [phone] Nichelle Dimas DO Unavailable [phone] Encounter Details Date Type Department Care Team (Late st Contact Info) Description 08/27/2015 Records - [facility] CONVERSION Scan, Non-Provider Social History Tobacco Use Types Packs/Day Years Used Date Smoking Tobacco: Never Smokeless Tobacco: Never Alcohol Use Standard Drinks/Week Comments No 0 (1 standard drink = 0.6 oz pur e alcohol) Sex and Gender Information Value Date Recorded Sex Assigned at Not on file Legal Sex Male 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 [employer] Gender Identity Not on file Sexual Orientation Not on file documented as of this encounter Plan of Treatment Not on file documented as of this encounter Visit Diagnoses Not on filedocumented in this encounter Care Teams Butcherette Relationship Specialty Start Date End Date System, Provider Not In PCP - General 10/19/08 03/10/16 Isaias Marrero [facility] [place] [address] PCP - General Internal Medicine 03/11/16 Katie Uribe MD [address] [place] [address] Assigned PCP 03/27/21 12/26/21 Chucky Romano MD [address] [facility] [id number] [place] [address] Assigned Surgical Provider 01/03/22 Radu Kwon MD [address] [place] [address] Assigned PCP 12/27/21 07/15/23 Nichelle Dimas DO [address] [place] [address] Assigned PCP 07/16/23 documented as of this encounter
--- OUTSIDE RECORDS SUMMARY | 2024-11-13 16:10 | XMS_ITS | Encounter Summary ---
Author Organization [facility] Address [address] [place] [id number] Care Team Providers Care Crew Boss Name Role Phone Isaias Marrero Primary Care Provider [phone] Katie Uribe MD Unavailable Chucky Romano MD Unavailable +[phone] Radu Kwon MD Unavailable + [phone] Nichelle Dimas DO Unavailable +[phone] Encounter Details Date Type Department Care Team (Late st Contact Info) Description 12/14/2021 [facility] [address] [place] [address] Unknown Social History Tobacco Use Types Packs/Day Years Used Date Smoking Tobacco: Never Smokeless Tobacco: Never Alcohol Use Standard Drinks/Week Comments Not Asked 0 (1 standard drink = 0.6 oz pur e alcohol) PHQ-2 Answer Date Recorded PHQ-2 Score 2 07/03/2019 Sex and Gender Information Value Date Recorded Sex Assigned at Not on file Legal Sex Male 4:03 AM [employer] Gender Identity Not on file Sexual Orientation Not on file COVID-19 Exposure Response Date Recorded In the last month, have you been in contact with someone who was confirmed or suspected to have Coronavirus / COVID-19? No / Unsure 12/10/2021 12:53 PM CDT documented as of this encounter Miscellaneous Notes * Telephone Encounter - Ceci Hinds LPN - 12/14/2021 3:05 PM CDT Superintendent Pressure routed to Neurosurgery Clinic Scheduling. Referral to Stroke/Neurovascular Zoya Hinds LPN Neurosurgery * Telephone Encounter - Caroline Sampson - 12/14/2021 11:26 AM CDT Health Call Center Phone Message May a detailed message be left on voicemail: yes Reason for Call: Appointment Intake Referring Provider Name: Jillian Couch Diagnosis and/or Symptoms: Carotid artery dissection Per protocol sent TE to neurosurgery Action Taken: Message routed to: [facility] Neurosurgery Travel Screening: Not Applicable documented in this encounter Plan of Treatment Not on file documented as of this encounter Visit Diagnoses Not on filedocumented in this encounter Care Teams Crew Boss Relationship Specialty Start Date End Date Isaias Marrero [facility] [address] [place] [address] PCP - General Internal Medicine 03/11/16 Katie Uribe MD [address] [place] [address] Assigned PCP 03/27/21 12/26/21 Chucky Romano MD [id number] [address] Assigned Surgical Provider 01/03/22 Radu wKon MD [address] [place] [address] Assigned PCP 12/27/21 07/15/23 Nichelle Dimas DO [address] [place] [address] Assigned PCP 07/16/23 documented as of this encounter
[2024-11-13 16:48] VITALS: BP 138/102; PULSE 62; RESP 18; TEMP 37.3; O2SAT 93
== END 2024-11-13 17:25 | disposition home or self-care (01) ==
PROVIDERS: Emergency Provider Emergency Medicine; PCP Internal Medicine
DX: S22.31XA Fracture of one rib, right side, initial encounter for closed fracture (principal); V80.010A Animal-rider injured by fall from or being thrown from horse in noncollision accident, initial encounter; Y93.52 Activity, horseback riding
CPT/HCPCS: 36415; 71260; 74177; 80053; 85025; 96374; 96375; 99283; 99284; 99285; J1171; J1885; J2405; Q9967